=== PATIENT | female | born 1945 | race Two or more races ===

== ENCOUNTER 2019-04-21 12:31 | Outpatient (CLI) | payer MEDICARE, MEDICAID ==
[~2019-04-21] VITALS: Ht 154.9 cm; Wt 69.4 kg
[2019-04-21 15:39] VITALS: BP 158/68
[2019-04-21] MEDS ORDERED: IMODIUM MULTI-1 EACH PO (15:39)
[2019-04-21] MEDS ORDERED: FERROUS SULFAT325 MG ORAL (15:39)
[2019-04-21] MEDS ORDERED: METOPROLOL TART25 MG ORAL (15:39)
[2019-04-21] MEDS ORDERED: ZOFRAN4 M3 ORAL (15:39)
[2019-04-21] MEDS ORDERED: LANTUS SOL100 UNIT/1 SUBQ (15:39)
[2019-04-21] MEDS ORDERED: OMEPRAZOLE40 M1 ORAL (15:39)
[2019-04-21] MEDS ORDERED: IMODIUM A-1 MG/7.5 M PO (15:39)
[2019-04-21] MEDS ORDERED: AMLODIPINE BESYL5 MG ORAL (15:39)
[2019-04-21] MEDS ORDERED: HUMALOG100 UNIT/4 SUBQ (15:39)
[2019-04-21] MEDS ORDERED: LOMOTIL TABLET1 EACH ORAL (15:39)
[2019-04-21] MEDS ORDERED: EYE (15:39)
--- NOTE | 2019-04-21 16:45 | Consultation ---
DATE OF CONSULTATION: 04/21/2019 CONSULTING PHYSICIAN: Wilton Herrera M.D. REFERRING PHYSICIAN: Liliam Wahley M.D. CHIEF COMPLAINT: Referral for colonoscopy after diagnosed with rectal cancer. HISTORY OF PRESENT ILLNESS: This is a very pleasant 73-year-old female diagnosed with rectal cancer in September. The patient had chemoradiation. The patient also suffers from chronic diarrhea even before her diagnosis of rectal cancer for which she is taking Imodium, Lomotil, and pinch of opium. The only thing that works for her is pinch of opium. She is here for repeat colonoscopy per Oncology request. PAST MEDICAL HISTORY: 1. History of rectal cancer. 2. Hypertension. 3. Diabetes x24 years. 4. Glaucoma. PAST SURGICAL HISTORY: 1. Hysterectomy. 2. Open cholecystectomy. FAMILY HISTORY: Noncontributory. SOCIAL HISTORY: The patient denies any tobacco, alcohol, or drug abuse. ALLERGIES: To codeine. MEDICATIONS: Please see medication reconciliation list. REVIEW OF SYSTEMS: Positive for abdominal pain, chronic diarrhea, chronic nausea, and vertigo. PHYSICAL EXAMINATION: VITAL SIGNS: Temperature 98, blood pressure __/68, pulse 60, and respirations 20. HEENT: Normocephalic and atraumatic. Sclerae anicteric. NECK: Supple. No evidence of obvious lymphadenopathy. CARDIOVASCULAR: Regular rate and rhythm. Plus S1 and S2. No obvious murmur. LUNGS: Clear to auscultation bilaterally. ABDOMEN: Positive bowel sounds. Soft and nontender. No rebound. No guarding. No peritoneal sign. EXTREMITIES: No cyanosis. No clubbing. No edema ASSESSMENT AND PLAN: A 73-year-old female here for evaluation for chronic diarrhea and also for repeat colonoscopy of the rectal cancer treatment per Oncology request. Plan, the patient to get a colonoscopy. The risks and benefits of the procedure was explained to her. The patient was given instruction for colonoscopy and is scheduled for next week. I want to thank Dr. Liliam Whaley for this kind referral. Wilton Herrera M.D. DR: MAYNOR JOB#: [id number] CC: Liliam Whaley M.D.; Fax#: [phone]
== END 2019-04-21 14:31 | disposition home or self-care (01) ==
LOC: PAN 12:31
DX: R19.7 Diarrhea, unspecified (principal); Z85.038 Personal history of other malignant neoplasm of large intestine; R10.9 Unspecified abdominal pain; R11.0 Nausea; Z90.49 Acquired absence of other specified parts of digestive tract; Z90.710 Acquired absence of both cervix and uterus; I10 Essential (primary) hypertension; E11.9 Type 2 diabetes mellitus without complications
CPT/HCPCS: G0463

== ENCOUNTER 2019-05-14 12:48 | Outpatient (CLI) | payer MEDICARE, MEDICAID ==
[~2019-05-14 12:48] MED LIST: AMLODIPINE BESYL5 MG ORAL; EYE; FERROUS SULFAT325 MG ORAL; HUMALOG100 UNIT/4 SUBQ; IMODIUM A-1 MG/7.5 M PO; IMODIUM MULTI-1 EACH PO; LANTUS SOL100 UNIT/1 SUBQ; LOMOTIL TABLET1 EACH ORAL; METOPROLOL TART25 MG ORAL; OMEPRAZOLE40 M1 ORAL; ZOFRAN4 M3 ORAL
[2019-05-14] MEDS ORDERED: OPIUM10 MG/1 ML PO (13:19)
--- NOTE | 2019-05-14 13:35 | General Progress Note ---
Assessment/Plan Assessment/Plan: 1. History of rectal cancer. 2. Hypertension. 3. Diabetes x24 years. 4. Glaucoma. 5. chronic diarrhea 6. Cholecystectomy 3 colon polyps added cholestyramine Celiac panel RTC 3 months Subjective ROS Limited/Unobtainable: Yes Allergies: Coded Allergies: CODEINE (Verified Allergy, Mild, 04/21/19) nervousness Objective General Appearance: alert EENT: normal ENT inspection Neck: supple Cardiovascular: normal rate Respiratory/Chest: decreased breath sounds Abdomen: normal bowel sounds, non tender, soft Extremities: non-tender Wilton Herrera MD May 14, 2019 13:35
[2019-05-14 15:24] VITALS: BP 133/55
== END 2019-05-14 14:48 | disposition home or self-care (01) ==
LOC: PAN 12:48
DX: R19.7 Diarrhea, unspecified (principal); Z90.49 Acquired absence of other specified parts of digestive tract; Z85.048 Personal history of other malignant neoplasm of rectum, rectosigmoid junction, and anus; I10 Essential (primary) hypertension; E11.9 Type 2 diabetes mellitus without complications; H40.9 Unspecified glaucoma; K63.5 Polyp of colon; Z88.6 Allergy status to analgesic agent

== ENCOUNTER 2019-08-06 13:50 | Outpatient (CLI) | payer MEDICARE, MEDICAID ==
[~2019-08-06 13:50] MED LIST changes: +OPIUM10 MG/1 ML PO
--- NOTE | 2019-08-06 14:32 | General Progress Note ---
Assessment/Plan Assessment/Plan: Assessment/Plan Assessment/Plan: 1. History of rectal cancer. 2. Hypertension. 3. Diabetes x24 years. 4. Glaucoma. 5. chronic diarrhea 6. Cholecystectomy 3 colon polyps increase cholestyramine to 3 times per day Celiac panel>> neg RTC 1 months Subjective ROS Limited/Unobtainable: Yes Allergies: Coded Allergies: CODEINE (Verified Allergy, Mild, 04/21/19) nervousness Objective General Appearance: alert EENT: normal ENT inspection Neck: supple Cardiovascular: normal rate Respiratory/Chest: lungs clear Abdomen: normal bowel sounds, non tender, soft Extremities: non-tender Wilton Herrera MD Aug 06, 2019 14:32
== END 2019-08-06 16:30 | disposition home or self-care (01) ==
LOC: PAN 13:50
DX: R19.7 Diarrhea, unspecified (principal); I10 Essential (primary) hypertension; E11.9 Type 2 diabetes mellitus without complications; Z90.49 Acquired absence of other specified parts of digestive tract; H40.9 Unspecified glaucoma; Z85.038 Personal history of other malignant neoplasm of large intestine; K63.5 Polyp of colon
CPT/HCPCS: 99212